=== PATIENT | female | born 1995 | race Caucasian/White ===

== ENCOUNTER 2017-03-16 23:01 | Emergency (ER) | payer BC ==
[~2017-03-16] VITALS: Ht 157.5 cm; Wt 123.5 kg
[2017-03-16 23:07] VITALS: Ht 157.5 cm; Wt 123.5 kg
--- NOTE | 2017-03-17 02:07 | ERD ---
ER Documentation Chief Complaint Chief Complaint vaginal bleeding x 1 day. seen at [facility] today for same HPI 21-year-old female is complaining of vaginal bleeding, pelvic cramping, and back pain 1 day. She had a positive test at home yesterday. She was seen at [place] less than 8 hours ago for the same. She had blood test and ultrasound done at the time. No intrauterine was noted on ultrasound, it may be either a complete , or early . Patient stated after she discharged from [place], her bleeding a little bit heavier , she passed a pea-sized clot. She thinks that that might be the fetus. Denies fever or chills. Denies dysuria. Patient had been on Depo-Provera for control for a long time, her last episode was in August this year. She had not had her period since. This is her first . ROS All systems reviewed and are negative except as per history of present illness. Allergies Allergies: Coded Allergies: No Known Drug Allergies (Verified Allergy, Unknown, 03/16/17) PMhx/Soc Medical and Surgical Hx: pt denies Medical Hx, pt denies Surgical Hx History of Surgery: No Anesthesia Reaction: No Hx Neurological Disorder: No Hx Respiratory Disorders: No Hx Cardiac Disorders: No Hx Psychiatric Problems: No Hx Alcohol Use: No Hx Substance Use: No Hx Tobacco Use: No Smoking Status: Never smoker Physical Exam Vitals Vital Signs Date Time Temp Pulse Resp B/P Pulse Ox O2 Delivery O2 Flow Rate FiO2 03/16/17 23:07 99.9 93 20 135/77 100 Physical Exam General: Well-developed, well-nourished, conscious and coherent, in no distress Skin: Warm and dry without rash, good texture and turgor Head: Normocephalic without evidence of trauma Eyes: Sclera and conjunctivae normal; pupils equal, round, and reactive to light; extraocular movements are intact Chest: Normal AP diameter. Good expansion without retractions. Nontender. Lungs are clear to auscultate bilaterally with good tidal volume Heart: Regular rate and rhythm. No murmur, rub, or gallops heard Abdomen: Soft and nontender without masses, guarding, or rebound. Bowel sounds are active. No hepatosplenomegaly Back: Without spinal or CVA tenderness Pelvis: Nontender to palpation and stable to compression Extremities: Full range of motion. Good strength bilaterally. No clubbing, cyanosis, or edema. Peripheral pulses are intact. Sensation intact Neuro: Alert and oriented 4, GCS 15. Cranial nerves grossly intact. Motor and sensory exams nonfocal. Moves all extremities. Speech clear. Gait normal Procedures/MDM Well-appearing 21-year-old female who is is here for vaginal bleeding 1 day. Patient already undergone full evaluation at [facility] less than 8 hours ago. I informed patient that I will not repeat all the testing at this time. Patient will need to follow-up with her PCP in 48 hours for repeat beta hCG quant. Patient does not have any pelvic tenderness on exam, I doubt ectopic . Patient appears well, stable for discharge and outpatient management. Medical decision making shared with patient and family. Education provided to patient and family. Patient and family expressed understanding of the plan. Medications on discharge: None. Follow-up: Primary care provider in 2-3 days or return to ED if worse. Disclaimer: Inadvertent spelling and grammatical errors are likely due to EHR/ dictation software use and do not reflect on the overall quality of patient care. Also, please note that the electronic time recorded on this note does not necessarily reflect the actual time of the patient encounter. Departure Diagnosis: Primary Impression: Vaginal bleeding in patient at less than 20 weeks ges... Condition: Stable Patient Instructions: Bleeding During Early Referrals: CLEOPATRA IBANEZ MD (PCP) INSURANCE ATTORNEY [place] [id number] [id number] OFFICE FAX NICKI EGAN [address] [place] [place] [phone] [address] [place], [place] [phone] DERIK SEALS [address] [facility] [facility] [address] [address] [address] [place] [phone] [facility] [address] [place], [place] [address] [address] [facility] [facility] [id number] - DR LOVE, SEBASTIAN [address], [facility] [phone] AKERS, DAVID [address] [facility]. [address], [facility] [address] [address] MEJIAS, [facility] [address] [place] [address] Additional Instructions: Call your primary care doctor TOMORROW for an appointment during the next 2-3 days.See the doctor sooner or return here if your condition worsens before your appointment time. PRINCESS MARTINEZ NP Mar 17, 2017 02:07
[2017-03-17 02:11] VITALS: BP 130/70; PULSE 86; RESP 18; TEMP 98.6
== END 2017-03-17 02:14 | disposition home or self-care (01) ==
LOC: FTE 23:01
DX: O20.9 Hemorrhage in early pregnancy, unspecified (principal); Z3A.01 Less than 8 weeks gestation of pregnancy
CPT/HCPCS: 99282

== ENCOUNTER 2017-04-12 20:33 | Emergency (ER) | END 2017-04-12 23:00 | disposition left against medical advice (07) ==